=== PATIENT | female | born 1945 | race Asian ===

== ENCOUNTER 2017-10-01 14:37 | Inpatient (IN) | payer MEDICARE, MEDICAID ==
--- NOTE | 2017-10-01 15:00 | ED Physician Chart ---
ED Chief Complaint/HPI - Patient Information Date Seen:: 10/01/17 Time Seen:: 14:45 Chief Complaint:: Abdominal Pain History of Present Illness:: onset x one week of intermittent, diffuse, crampy abd. pain; no report of A/N/V/ D/C, fever, chills, H/As, S/T, neck pain, C/P, SOB, cough, flank pain, or urinary s/s Allergies:: Allergies Allergy/AdvReac Type Severity Reaction Status Date / Time No Known Allergies Allergy Verified 10/01/17 14:56 Historian:: Patient, Family Member Review:: Nurse's Note Reviewed <Francisco Quezada - Last Filed: 10/01/17 17:56> - Patient Information Allergies:: Allergies Allergy/AdvReac Type Severity Reaction Status Date / Time No Known Allergies Allergy Verified 10/01/17 14:56 Vitals:: Vital Signs - 8 hr 10/01/17 10/01/17 10/01/17 14:58 15:00 17:58 Temp 97.6 F 98.0 F 97.6 F HR 85 89 71 RR 19 18 16 BP 124/79 150/83 141/78 O2 Sat % 97 98 96 10/01/17 19:00 Temp 97.3 F HR 86 RR 18 BP 141/72 O2 Sat % 99 <Wilder Leon - Last Filed: 10/01/17 20:05> ED Review of Systems - Review of Systems General/Constitutional: No fever, No chills, No weight loss, No weakness, No diaphoresis, No edema, No loss of appetite Skin: No skin lesions, No rash, No bruising Head: No headache, No light-headedness Eyes: No loss of vision, No pain, No diplopia ENT: No earache, No nasal drainage, No sore throat, No tinnitus Neck: No neck pain, No swelling, No thyromegaly, No stiffness, No mass noted Cardio Vascular: No chest pain, No palpitations, No PND, No orthopnea, No edema Pulmonary: No SOB, No cough, No sputum, No wheezing GI: No nausea, No vomiting, No diarrhea, Pain, No melena, No hematochezia, No constipation, No hematemesis G/U: No dysuria, No frequency, No hematuria Musculoskeletal: No bone or joint pain, No back pain, No muscle pain Endocrine: Polyuria, No polyuria Psychiatric: No prior psych history, No depression, No anxiety, No suicidal ideation, No homicidal ideation, No auditory hallucination, No visual hallucination Hematopoietic: No bruising, No lymphadenopathy Allergic/Immuno: No urticaria, No angioedema Neurological: No syncope, No focal symptoms, No weakness, No paresthesia, No headache, No seizure, No dizziness, No confusion, No vertigo <PilarFrancisco - Last Filed: 10/01/17 17:56> ED Past Medical History - Past Medical History Obtainable: Yes Past Medical History: HTN, DM, Dyslipidemia Family History: Diabetes Melitus, HTN Social History: Non Smoker, No Alcohol, No Drug Use, Single Surgical History: None Psychiatricy History: None Medication: Reviewed <PilarFrancisco - Filed: 10/01/17 17:56> ED Physical Exam - Physical Examination General/Constitutional: Awake, Well-developed, well-nourished, Alert, No distress, GCS 15, Non-toxic appearing, Ambulatory Head: Atraumatic Eyes: Lids, conjuctiva normal, PERRL, EOMI Skin: Nl inspection, No rash, No skin lesions, No ecchymosis, Well hydrated, No lymphadenopathy ENMT: External ears, nose nl, TM canals nl, Nasal exam nl, Lips, teeth, gums nl , Oropharynx nl, Tonsils nl Neck: Nontender, Full ROM w/o pain, No JVD, No nuchal rigidity, No bruit, No mass, No stridor Respiratory: Nl effort/Exclusion, Clear to Auscultation, No Wheeze/Rhonchi/Rales Cardio Vascular: RRR, No murmur, gallop, rubs, NL S1 S2, Carotid/Femoral/Distal pulses equal bilaterally GI: No tenderness/rebounding/guarding, No organomegaly, No hernia, Normal BS's, Nondistended, No mass/bruits, No McBurney tenderness : No CVA tenderness Extremities: No tenderness or effusion, Full ROM, normal strength in all extremities, No edema, Normal digits & nails Neuro/Psych: Alert/oriented, DTR's symmetric, Normal sensory exam, Normal motor strength, Judgement/insight normal, Mood normal, Normal gait, No focal deficits Misc: Normal back, No paraspinal tenderness <Francisco Quezada - Last Filed: 10/01/17 17:56> ED Labs/Radiology/EKG Results - Lab Results Comments:: Na+: 128; Glucose: 470; - Radiology Results Comments:: NAD - EKG Interpretations EKG Time:: 15:35 Rate & Rhythm: 74; NSR Comments:: RBBB; non-specific st-t changes <YingmyraGlenna wuil - Last Filed: 10/01/17 17:56> - Lab Results Results: Laboratory Tests 10/01/17 10/01/17 10/01/17 15:12 15:12 15:12 WBC 6.9 RBC 4.67 Hgb 14.2 Hct 41.6 MCV 88.9 MCH 30.3 MCHC Differential 34.1 RDW 11.6 Plt Count 200 MPV 10.0 Neutrophils (Manual) 54 Lymphocytes 33 Monocytes 10 Eosinophils 3 Platelet Estimate ADEQUATE PT 11.0 INR 1.06 Sodium 128 L Potassium 4.0 Chloride 97 L Carbon Dioxide 24.8 Anion Gap 10.2 BUN 19 Creatinine 0.9 Est GFR ( Amer) TNP Est GFR (Non-Af Amer) TNP BUN/Creatinine Ratio 21.1 Glucose 470 H* POC Glucose Hemoglobin A1c % Calcium 9.3 Total Bilirubin 0.4 AST 17 ALT 12 Alkaline Phosphatase 68 Creatine Kinase 46 Troponin I B-Natriuretic Peptide Total Protein 7.0 Albumin 3.7 Globulin 3.3 Albumin/Globulin Ratio 1.1 Triglycerides 1375 H Cholesterol 490 H LDL Cholesterol Direct 64 L HDL Cholesterol 29 Amylase Lipase Urine Source Urine Color Urine Clarity Urine pH Ur Specific [place] Urine Protein Urine Glucose (UA) Urine Ketones Urine Blood Urine Nitrate Urine Bilirubin Urine Urobilinogen Ur Leukocyte Esterase Urine RBC Urine WBC Ur Epithelial Cells Urine Bacteria 10/01/17 10/01/17 10/01/17 15:12 15:12 15:12 WBC RBC Hgb Hct MCV MCH MCHC Differential RDW Plt Count MPV Neutrophils (Manual) Lymphocytes Monocytes Eosinophils Platelet Estimate PT INR Sodium Potassium Chloride Carbon Dioxide Anion Gap BUN Creatinine Est GFR ( Amer) Est GFR (Non-Af Amer) BUN/Creatinine Ratio Glucose POC Glucose Hemoglobin A1c % Calcium Total Bilirubin AST ALT Alkaline Phosphatase Creatine Kinase Troponin I 0.01 B-Natriuretic Peptide 59.3 Total Protein Albumin Globulin Albumin/Globulin Ratio Triglycerides Cholesterol LDL Cholesterol Direct HDL Cholesterol Amylase 24 L Lipase 49 Urine Source Urine Color Urine Clarity Urine pH Ur Specific [place] Urine Protein Urine Glucose (UA) Urine Ketones Urine Blood Urine Nitrate Urine Bilirubin Urine Urobilinogen Ur Leukocyte Esterase Urine RBC Urine WBC Ur Epithelial Cells Urine Bacteria 10/01/17 10/01/17 10/01/17 16:51 18:00 19:23 WBC RBC Hgb Hct MCV MCH MCHC Differential RDW Plt Count MPV Neutrophils (Manual) Lymphocytes Monocytes Eosinophils Platelet Estimate PT INR Sodium Potassium Chloride Carbon Dioxide Anion Gap BUN Creatinine Est GFR ( Amer) Est GFR (Non-Af Amer) BUN/Creatinine Ratio Glucose POC Glucose 299 H Hemoglobin A1c % 12.0 H Calcium Total Bilirubin AST ALT Alkaline Phosphatase Creatine Kinase Troponin I B-Natriuretic Peptide Total Protein Albumin Globulin Albumin/Globulin Ratio Triglycerides Cholesterol LDL Cholesterol Direct HDL Cholesterol Amylase Lipase Urine Source CLEAN C Urine Color PALE YELLOW Urine Clarity CLEAR Urine pH 5.5 Ur Specific [place] 1.010 Urine Protein NEGATIVE Urine Glucose (UA) >=1000 H Urine Ketones NEGATIVE Urine Blood NEGATIVE Urine Nitrate NEGATIVE Urine Bilirubin NEGATIVE Urine Urobilinogen 0.2 Ur Leukocyte Esterase NEGATIVE Urine RBC NONE SEEN Urine WBC NONE SEEN Ur Epithelial Cells NONE SEEN Urine Bacteria NONE SEEN <Wilder Leon - Last Filed: 10/01/17 20:05> ED Septic Shock - . Is Septic Shock (SBP<90, OR Lactate>4 mmol\L) present?: No <Francisco Quezada - Last Filed: 10/01/17 17:56> - <6hrs of presentation: Vital Signs: Vital Signs - 8 hr 10/01/17 10/01/17 10/01/17 14:58 15:00 17:58 Temp 97.6 F 98.0 F 97.6 F HR 85 89 71 RR 19 18 16 BP 124/79 150/83 141/78 O2 Sat % 97 98 96 10/01/17 19:00 Temp 97.3 F HR 86 RR 18 BP 141/72 O2 Sat % 99 <Wilder Leon - Last Filed: 10/01/17 20:05> ED Reassessment (Disposition) - Reassessment Reassessment Condition:: Improved - Diagnosis Diagnosis:: Dx: Hyperglycemia; Hyponatremia; Dehydration; DM <Francisco Quezada - Last Filed: 10/01/17 17:56> - Patient Disposition Discharge/Transfer:: Acute Care w/in this hosp Admitted to:: Telemetry Admitting Medical Physician:: Gustavo Cam Condition at Disposition:: Stable <Wilder Leon - Last Filed: 10/01/17 20:05> ED Discharge Plan <Francisco Quezada - Last Filed: 10/01/17 17:56> <Wilder Leon - Last Filed: 10/01/17 20:05> - Patient Disposition Admit/Discharge/Transfer: Acute Care w/in this hosp Condition at Disposition: Guarded
[2017-10-01] MEDS ORDERED: Sodium Chloride 0.9% 1,000 ML IV ONE (15:01)
[2017-10-01 15:28] LABS: HEMATOCRIT 41.6 % (41.0-60); HEMOGLOBIN 14.2 gm/dL (12-16); MEAN CELL VOLUME 88.9 fl (81-100); MEAN CORPUSCULAR HEMOGLOBIN 30.3 pg (27.0-31.0); MEAN CORPUSCULAR HGB CONC 34.1 pg (28.0-36.0); PLATELET COUNT 200 Th/cmm (150-400); RED BLOOD COUNT 4.67 Mil/cmm (3.80-5.20); RED CELL DISTRIBUTION WIDTH 11.6 % (11.5-20.0); WHITE BLOOD COUNT 6.9 Th/cmm (4.8-10.8)
--- NOTE | 2017-10-01 15:33 | Diagnostic Imaging Report ---
CT scan abdomen and pelvis without intravenous contrast HISTORY: Pain Total DLP equals 504 CTDI equals 10.7 Axial sections were obtained from the xiphoid process down to the pubic symphysis. Limited sections through the lower chest demonstrate a somewhat generous heart size. The liver exhibits a bulbous contour. No focal lesions. The spleen appears normal. No focal amenities seen within the pancreas. The kidneys appear normal bilaterally. Atherosclerotic calcination seen within the aorta. The exam of the pelvis demonstrates preservation of normal fat planes. No abnormal soft tissue masses or abnormal fluid collections. No bowel dilatation. No abnormalities seen in the region of the appendix. IMPRESSION: 1. No acute abnormalities
--- NOTE | 2017-10-01 15:35 | Diagnostic Imaging Report ---
Portable chest x-ray HISTORY: Pain The heart size appears generous. Atherosclerotic calcification seen within the aorta. Allowing for a poor inspiration, no acute focal pulmonary processes are seen. Multiple surgical clips noted in the left axillary area. IMPRESSION: 1. No acute focal pulmonary processes 2. Generous heart size with atherosclerotic vascular changes
[2017-10-01 15:56] LABS: INR 1.06 (0.5-1.4)
[2017-10-01 16:19] LABS: ALB/GLOB RATIO 1.1 (1.0-1.8); ALKALINE PHOSPHATASE 68 U/L (34-104); ANION GAP 10.2 (7.0-16.0); BILIRUBIN,TOTAL 0.4 mg/dL (0.3-1.0); BUN - UREA NITROGEN 19 mg/dL (7-25); BUN/CREATININE RATIO 21.1; CALCIUM SERUM 9.3 mg/dL (8.6-10.3); CARBON DIOXIDE 24.8 mEq/L (21.0-31.0); CHLORIDE 97 mEq/L (98-107); CHOLESTEROL 490 mg/dL (<200); CREATININE - SERUM 0.9 mg/dL (0.6-1.2); SGOT 17 U/L (13-39); SGPT/ALT 12 U/L (7-52); SODIUM SERUM 128 mEq/L (136-145)
[2017-10-01 16:26] LABS: EOSINOPHIL 3 % (0-5); NEUTROPHILS 54 % (40-80); PLATELET ESTIMATE ADEQUATE (NORMAL)
[2017-10-01 16:33] LABS: AMYLASE SERUM 24 U/L (29-103); LIPASE 49 U/L (11-82)
[2017-10-01 16:38] LABS: GLUCOSE 470 mg/dL (70-105)
[2017-10-01 16:39] LABS: TRIGLYCERIDES 1375 mg/dL (<150)
[2017-10-01] MEDS ORDERED: INSULIN HUMAN REGULAR 100 UNITS/ML UNIT SUBQ ONE (17:55)
[2017-10-01] MEDS ORDERED: INSULIN HUMAN REGULAR 100 UNITS/ML UNIT ONE (18:07)
[2017-10-01 18:48] LABS: URINE BILIRUBIN NEGATIVE (NEGATIVE); URINE BLOOD NEGATIVE (NEGATIVE); URINE GLUCOSE (UA) >=1000 mg/dL (NEGATIVE); URINE KETONE NEGATIVE (NEGATIVE); URINE PH 5.5 (4.6 - 8.0); URINE PROTEIN NEGATIVE (NEGATIVE); URINE UROBILINOGEN 0.2 E.U./dL (0.2 - 1.0)
[2017-10-01 18:54] LABS: URINE COLOR PALE YELLOW; URINE EPITHELIAL CELLS NONE SEEN /lpf (FEW); URINE RBC NONE SEEN /hpf (0-5); URINE WBC NONE SEEN /hpf (0-5)
[2017-10-01 18:55] LABS: URINE BACTERIA NONE SEEN /hpf (NONE SEEN)
[2017-10-01] MEDS: Sodium Chloride 0.9% 1,000 ML IV SCH (19:47)
[2017-10-01 23:02] VITALS: BP 129/88
[2017-10-01] MEDS ORDERED: Morphine Sulfate 2 mg/mL 1mL Syr IVP PRN (23:23)
[2017-10-01] MEDS ORDERED: Ipratropium Neb 0.5 mg/2.5 mL UD IH PRN (23:23)
[2017-10-01] MEDS ORDERED: Albuterol Nebulizer 2.5mg/3mL HHN PRN (23:23)
[2017-10-01] MEDS ORDERED: Maalox 30 mL Cup PO PRN (23:23)
[2017-10-02] MEDS: INSULIN ASPART, RECOMBINANT 100 UNITS/ML SUBQ SCH ×4 (06:58→22:06)
--- NOTE | 2017-10-02 07:58 | Diagnostic Imaging Report ---
Exam: CT examination of lumbar sacral spine. HISTORY: Diffuse back pain. Total DLP equals 899 CTDI equals 43.1 Findings: Multiple contiguous thin section of the lumbosacral spine were obtained without administration of contrast material. Coronal sagittal reconstruction technique was utilized. The study demonstrates vertebral bodies of normal height. There is evidence for degenerative images with spurring and bridging. There is no evidence of spinal stenosis. No prevertebral soft tissue swelling is noted. Degenerative osteopenic changes facet joint adenopathy appreciated. There is no evidence of spondylolysis or spondylolisthesis abdominal aorta is calcified. IMPRESSION: 1. Degenerative changes of the lumbar sacral spine 2. MRI examination might be helpful.
[2017-10-02] MEDS ORDERED: ERGOCALCIFEROL 50000 UNIT PO SCH (08:00)
--- NOTE | 2017-10-02 08:01 | Diagnostic Imaging Report ---
Exam: CT examination of thoracic spine. HISTORY: Diffuse pain. Total DLP equals 1120 CTDI equals 38.2 Findings: Multiple contiguous thin section of the thoracic spine were obtained in the plane with coronal sagittal reconstruction technique. No prior studies available comparison. The study demonstrates a vertebral bodies of normal height. There is evidence for degenerative changes the lower thoracic spine with anterior bridging and spurring. There is no evidence of spinal stenosis. There is no evidence of spondylolysis or spondylolisthesis. No prevertebral soft tissue swelling is noted. IMPRESSION: Degenerative changes of the thoracic spine with anterior spurring and bridging. If clinically indicated MRI examination might be helpful.
--- NOTE | 2017-10-02 08:03 | Diagnostic Imaging Report ---
Exam: CT examination cervical spine. HISTORY: Diffuse pain. Total DLP equals 454 CTDI equals weight 2.6 Findings: Multiple contiguous thin section of the cervical spine were obtained from the base of skull to thoracic outlet without the administration of contrast material no prior studies available for comparison. The study demonstrates vertebral bodies of normal height with preserved intervertebral disc spaces. Mild vacuum disc phenomenon is noted at C6-C7 vertebral bodies. Posterior elements are intact. There is no evidence of spinal stenosis. No prevertebral soft tissue swelling is noted. Mild posterior facet uropathy appreciated in lower cervical spine. IMPRESSION: Essentially unremarkable examination cervical spine. If clinically indicated MRI examination might be helpful.
[2017-10-02] MEDS ORDERED: Fenofibrate, Micronized 134 mg Cap PO SCH (09:00)
[2017-10-02] MEDS: Levothyroxine 0.05 Mg Tab PO SCH (09:14)
[2017-10-02] MEDS: Pantoprazole 40 mg EC Tab PO SCH ×2 (09:14→16:59)
[2017-10-02] MEDS: Lidocaine 5% Patch TD SCH (10:26)
[2017-10-02] MEDS: Fenofibrate, Micronized 134 mg Cap PO SCH (10:28)
[2017-10-02] MEDS ORDERED: Influenza Vaccine 0.5 mL Syr IM ONE (10:57)
[2017-10-02] MEDS ORDERED: Pneumococcal Vaccine 0.5 mL Vial IM ONE (10:57)
--- NOTE | 2017-10-02 11:04 | History and Physical ---
History of Present Illness - HPI Chief Complaint: severe back pain and abdominal pain HPI: This is a 72 year old maur[place] female who has a 1 week hsitory of severe back pain and abdominal pain. According to at bedside patient has been having this pain for a year already but it has been intermittent, she fell last year and after the fall patient has been having back pains. She also complains of abdominal pain, denies any diarrhea or any vomiting. Per at bedside, patient unable to walk well due to the pain. Vital Signs: Last Vital Signs Temp 97.4 F 10/02/17 08:40 Pulse 69 10/02/17 09:14 Resp 17 10/02/17 08:40 BP 174/85 10/02/17 09:14 Pulse Ox 97 10/02/17 08:40 Past Medical History Cardiovascular: Report: HTN, Hyperlipidemia Pulmonary: Report: No Pertinent Hx Psych: Report: No Pertinent Hx Musculoskeletal: Report: Low Back Pain Other History: DIABETES - Past Surgical History Past Surgical History: Other (left breast mastectomy left fore arm surgery salpingoophorectomy) Family Medical History - Family Member Mother History Unknown: Yes Social History Smoke: No Alcohol: None Drugs: None Lives: With Family - Medications Home Medications: Home Medication Medication Instructions Recorded Type Benazepril HCl 20 mg PO DAILY 10/01/17 History Donepezil Hcl [Aricept] 5 mg PO DAILY 10/01/17 History Ergocalciferol (Vitamin D2) 50,000 units PO [facility] 10/01/17 History [Vitamin D2] Fenofibrate 160 mg PO DAILY 10/01/17 History Glipizide 5 mg PO BID 10/01/17 History Levothyroxine [Synthroid] 50 mcg PO DAILY 10/01/17 History Lovastatin 20 mg PO HS 10/01/17 History Metformin HCl [Glucophage] 1,000 mg PO 10/01/17 History - Allergies Allergies/Adverse Reactions: Allergies Allergy/AdvReac Type Severity Reaction Status Date / Time No Known Allergies Allergy Verified 10/01/17 14:56 Review of Systems - Review of Systems Constitutional: Report: Weakness Eyes: Report: No Significant ENT: Report: No Significant Respiratory: Report: No Significant Cardiovascular: Report: No Significant Gastrointestinal: Report: Abdominal Pain Genitourinary: Report: No Significant Musculoskeletal: Report: Back Pain Skin: Report: No Significant Neurological: Report: Weakness Physical Exam - Physical Exam HEENT: Report: Ears Nose Throat within normal limits Neck: Report: Within normal limits Cardiovascular Systems: Report: +s1/s2 noted Respiratory: Report: Breath Sounds are within normal limits Abdomen: Report: Non-tender to palpation Back: Report: Inspection of back is within normal limits. Extremities: Report: Non-tender to palpation. Skin: Report: Color of skin is within normal limits Neuro/Psych: Report: A+Ox3 - Lab Results All Lab Results last 24 hours: Laboratory Results - last 24 hr 10/02/17 05:31 POC Glucose 260 H - Assessment Assessment: Current Active Problems Problem Status Onset RUQ PAIN WITH LUMBAR/THORACIC PAIN Acute HTN DM-2 - Plan Plan: Ortho consult pain mgmt ivf for hydration monitor glucose with sliding scale follow up labs
[2017-10-02] MEDS: Hydrocodone/APAP 5mg/325mg Tab PO PRN ×2 (12:09→22:05)
--- NOTE | 2017-10-02 13:04 | History & Physical ---
ADMIT DATE: 10/02/2017 CHIEF COMPLAINT: Abdominal pain and chronic low back pain. HISTORY OF PRESENT ILLNESS: This is a 72-year-old [place]istanian female who has a 1-week history of abdominal pain associated with low back pain. Per patient's at bedside, the patient has been having this ongoing pain on her lower back for a year already. The patient did not have any recent falls, however, the patient did fall a year ago and the patient started to complaint of right leg pain. The patient did not have any fevers or any diarrhea at home. In the ER, the patient was found to have JOB# [id number]
[2017-10-02] MEDS: Sodium Chloride 0.9% 1,000 ML IV SCH (17:12)
[2017-10-02] MEDS ORDERED: Insulin Detemir 100 units/mL 10mL Vial SUBQ SCH (21:00)
--- NOTE | 2017-10-03 02:35 | Consultation ---
DATE OF CONSULTATION: 10/02/2017 INPATIENT GASTROINTESTINAL PROCEDURE REASON FOR CONSULTATION: Back pain. HISTORY: A 72-year-old female who was originally admitted to the hospital for back pain. The patient was also noted to have abdominal pain by the admitting personnel. By the time I am seeing the patient today she refutes that claim that she has any abdominal pain. She states that her pain is primarily in her back. She is actually eating a full regular lunch meal as I am talking to her and she is without any abdominal pain. Her is at bedside who corroborates the story as well. They both do not know why they think that she has abdominal pain. So for the record, she states she has no abdominal pain. She denies having any nausea or vomiting. She denies having any diarrhea or constipation. She denies melena, hematochezia, hematemesis, or coffee ground emesis. Her political researcher, whom she saw approximately 2 years for a routine colonoscopy, which revealed that she has some polyps. PAST MEDICAL HISTORY: Hypertension and hyperlipidemia. PAST SURGICAL HISTORY: Mastectomy, salpingo-oophorectomy. FAMILY HISTORY: Noncontributory. SOCIAL HISTORY: She denies tobacco, alcohol or IV drug usage. ALLERGIES: None. CURRENT MEDICATIONS: Tylenol, [place], Maalox, Ecotrin, Lotensin, Aricept, Tricor, insulin, Atrovent, Synthroid, metformin, morphine, Zofran, Protonix, Zocor, Ambien. REVIEW OF SYSTEMS: Ten point review of system was performed and pertinent positives was low back pain. All systems were otherwise negative. PHYSICAL EXAMINATION: VITAL SIGNS: Temperature 97.7, breathing 17, pulse of 71, blood pressure is 129/67, satting 98%. GENERAL: In no apparent distress. EYES: Are anicteric. Normal conjunctivae. HEENT: Normocephalic, atraumatic. Moist mucous membranes. NECK: Soft, supple. CHEST: Clear. No effort. CARDIOVASCULAR: Regular rate and rhythm. ABDOMEN: Soft, nontender, nondistended, normal bowel sounds. SKIN: Warm, dry. EXTREMITIES: Reveal no cyanosis. PSYCHOLOGIC: Alert and oriented x 3. LABORATORY DATA: Show white count 6.9, hemoglobin 14.2, platelets of 200, total bilirubin 0.4, AST 17, ALT 12, alkaline phosphatase 68, creatinine 0.9, lipase 49. CT abdomen and pelvis showed no acute abnormalities. IMPRESSION: A 72-year-old female with low back pain. There are no reports of any abdominal pain. The patient refused anything that she had recent abdominal pain; therefore, no GI workup is planned in the absence of any symptoms. Her LFTs and lipase were reviewed and were within normal limits. Her CT abdomen and pelvis with was reviewed and they showed no acute abdominal or pelvic pathology. The case was also discussed with Dr. Cam, the admitting physician. I informed him that the patient is without any abdominal pain. At this time, there is no GI workup that is needed. Should the patient develop any future abdominal pain, however, the GI workup can be done accordingly. PLAN: 1. Consider orthopedic evaluation and other workup necessary for her low back pain. 2. We can see the patient as needed with any abdominal pain which were to develop. In the meantime, we will sign off. 3. Case was also discussed with Dr. Cam as well. Thank you for allowing me to participate. Please call me if any questions. JOB# [id number]
[2017-10-03] MEDS: Sodium Chloride 0.9% 1,000 ML IV SCH (05:51)
[2017-10-03 06:53] LABS: HEMATOCRIT 39.1 % (41.0-60); MEAN CELL VOLUME 89.1 fl (81-100); MEAN CORPUSCULAR HEMOGLOBIN 29.6 pg (27.0-31.0); MEAN CORPUSCULAR HGB CONC 33.2 pg (28.0-36.0); MEAN PLATELET VOLUME 9.7 fl; PLATELET COUNT 180 Th/cmm (150-400); RED BLOOD COUNT 4.39 Mil/cmm (3.80-5.20); RED CELL DISTRIBUTION WIDTH 11.8 % (11.5-20.0)
[2017-10-03 07:00] LABS: ANION GAP 9.7 (7.0-16.0); BUN - UREA NITROGEN 14 mg/dL (7-25); BUN/CREATININE RATIO 17.5; CALCIUM SERUM 8.6 mg/dL (8.6-10.3); CHLORIDE 103 mEq/L (98-107); CREATININE - SERUM 0.8 mg/dL (0.6-1.2); GLUCOSE 183 mg/dL (70-105); POTASSIUM SERUM 3.7 mEq/L (3.5-5.1); SODIUM SERUM 134 mEq/L (136-145)
[2017-10-03 07:01] LABS: WHITE BLOOD COUNT 8.7 Th/cmm (4.8-10.8)
[2017-10-03] MEDS: Hydrocodone/APAP 5mg/325mg Tab PO PRN (07:52)
[2017-10-03] MEDS: INSULIN ASPART, RECOMBINANT 100 UNITS/ML SUBQ SCH ×2 (08:10→12:06)
[2017-10-03 08:13] LABS: NEUTROPHILS 51 % (40-80); TOTAL CELLS COUNTED 100
[2017-10-03] MEDS: Fenofibrate, Micronized 134 mg Cap PO SCH (09:39)
[2017-10-03] MEDS: Lidocaine 5% Patch TD SCH (09:40)
[2017-10-03] MEDS: Levothyroxine 0.05 Mg Tab PO SCH (09:40)
[2017-10-03] MEDS: Pantoprazole 40 mg EC Tab PO SCH (09:42)
--- NOTE | 2017-10-03 09:57 | Internal Medicine Prog Note ---
Internal Medicine Subjective - Subjective Service Date: 10/03/17 Patient seen and examined:: with staff Patient is:: awake Per staff patient has:: tolerating meds Internal Medicine Objective - Results Result Diagrams: 10/03/17 05:45 10/03/17 05:45 Recent Labs: Laboratory Last Values WBC 8.7 Th/cmm (4.8-10.8) D 10/03/17 05:45 RBC 4.39 Mil/cmm (3.80-5.20) 10/03/17 05:45 Hgb 13.0 gm/dL (12-16) 10/03/17 05:45 Hct 39.1 % (41.0-60) L 10/03/17 05:45 MCV 89.1 fl (81-100) 10/03/17 05:45 MCH 29.6 pg (27.0-31.0) 10/03/17 05:45 MCHC Differential 33.2 pg (28.0-36.0) 10/03/17 05:45 RDW 11.8 % (11.5-20.0) 10/03/17 05:45 Plt Count 180 Th/cmm (150-400) 10/03/17 05:45 MPV 9.7 fl 10/03/17 05:45 Neutrophils (Manual) 51 % (40-80) 10/03/17 05:45 Lymphocytes 43 % (20-50) 10/03/17 05:45 Monocytes 6 % (2-10) 10/03/17 05:45 Eosinophils 3 % (0-5) 10/01/17 15:12 Platelet Estimate ADEQUATE (NORMAL) 10/01/17 15:12 PT 11.0 SECONDS (9.5-11.5) 10/01/17 15:12 INR 1.06 (0.5-1.4) 10/01/17 15:12 Sodium 134 mEq/L (136-145) L 10/03/17 05:45 Potassium 3.7 mEq/L (3.5-5.1) 10/03/17 05:45 Chloride 103 mEq/L (98-107) 10/03/17 05:45 Carbon Dioxide 25.0 mEq/L (21.0-31.0) 10/03/17 05:45 Anion Gap 9.7 (7.0-16.0) 10/03/17 05:45 BUN 14 mg/dL (7-25) 10/03/17 05:45 Creatinine 0.8 mg/dL (0.6-1.2) 10/03/17 05:45 Est GFR ( Amer) TNP 10/03/17 05:45 Est GFR (Non-Af Amer) TNP 10/03/17 05:45 BUN/Creatinine Ratio 17.5 10/03/17 05:45 Glucose 183 mg/dL (70-105) H 10/03/17 05:45 POC Glucose 192 MG/DL (70 - 105) H 10/03/17 06:35 Hemoglobin A1c % 12.0 % (4.0-6.0) H 10/01/17 16:51 Calcium 8.6 mg/dL (8.6-10.3) 10/03/17 05:45 Total Bilirubin 0.4 mg/dL (0.3-1.0) 10/01/17 15:12 AST 17 U/L (13-39) 10/01/17 15:12 ALT 12 U/L (7-52) 10/01/17 15:12 Alkaline Phosphatase 68 U/L (34-104) 10/01/17 15:12 Creatine Kinase 46 U/L (30-223) 10/01/17 15:12 Troponin I 0.01 ng/mL (0.01-0.05) 10/01/17 15:12 B-Natriuretic Peptide 59.3 pg/mL (5.0-100.0) 10/01/17 15:12 Total Protein 7.0 gm/dL (6.0-8.3) 10/01/17 15:12 Albumin 3.7 gm/dL (3.7-5.3) 10/01/17 15:12 Globulin 3.3 gm/dL 10/01/17 15:12 Albumin/Globulin Ratio 1.1 (1.0-1.8) 10/01/17 15:12 Triglycerides 1375 mg/dL (<150) H 10/01/17 15:12 Cholesterol 490 mg/dL (<200) H 10/01/17 15:12 LDL Cholesterol Direct 64 mg/dL (75-193) L 10/01/17 15:12 HDL Cholesterol 29 mg/dL (23-92) 10/01/17 15:12 Amylase 24 U/L (29-103) L 10/01/17 15:12 Lipase 49 U/L (11-82) 10/01/17 15:12 Urine Source CLEAN C 10/01/17 18:00 Urine Color PALE YELLOW 10/01/17 18:00 Urine Clarity CLEAR (CLEAR) 10/01/17 18:00 Urine pH 5.5 (4.6 - 8.0) 10/01/17 18:00 Ur Specific [place] 1.010 (1.005-1.030) 10/01/17 18:00 Urine Protein NEGATIVE mg/dL (NEGATIVE) 10/01/17 18:00 Urine Glucose (UA) >=1000 mg/dL (NEGATIVE) H 10/01/17 18:00 Urine Ketones NEGATIVE mg/dL (NEGATIVE) 10/01/17 18:00 Urine Blood NEGATIVE (NEGATIVE) 10/01/17 18:00 Urine Nitrate NEGATIVE (NEGATIVE) 10/01/17 18:00 Urine Bilirubin NEGATIVE (NEGATIVE) 10/01/17 18:00 Urine Urobilinogen 0.2 E.U./dL (0.2 - 1.0) 10/01/17 18:00 Ur Leukocyte Esterase NEGATIVE (NEGATIVE) 10/01/17 18:00 Urine RBC NONE SEEN /hpf (0-5) 10/01/17 18:00 Urine WBC NONE SEEN /hpf (0-5) 10/01/17 18:00 Ur Epithelial Cells NONE SEEN /lpf (FEW) 10/01/17 18:00 Urine Bacteria NONE SEEN /hpf (NONE SEEN) 10/01/17 18:00 - Physical Exam Vitals and I&O: Vital Signs Temp 98.6 F 10/03/17 04:00 Pulse 68 10/03/17 09:38 Resp 16 10/03/17 07:45 BP 162/97 10/03/17 09:38 Pulse Ox 97 10/03/17 07:45 Intake & Output 10/02/17 10/03/17 10/03/17 18:59 06:59 18:59 Intake Total 100 1600 150 Output Total 123 Balance 100 1600 27 Weight (lbs) 152 lb 155 lb 12.8 oz 155 lb Intake: Intake, IV Amount 1000 Sodium Chloride 0.9% 1, 1000 000 ml @ 100 mls/hr IV . Q10H [facility] Rx#:[id number] Oral 100 600 150 Output: Urine 120 Stool 3 Other: # Voids 3 2 # Bowel Movements 0 1 Stool Characteristics Soft Soft Active Medications: Current Medications Acetaminophen (Tylenol) 650 mg PO Q4H PRN PRN Reason: Pain Or Fever above 101 Stop: 11/30/17 23:22 Acetaminophen/Hydrocodone Bitart ([place] 5mg/325mg) 1 tab PO Q4H PRN PRN Reason: Pain (Severe) Stop: 11/30/17 23:22 Last Admin: 10/03/17 07:52 Dose: 1 tab Al Hydrox/Mg Hydrox/Simethicone (Maalox) 30 ml PO Q6H PRN PRN Reason: Dyspepsia Stop: 11/30/17 23:22 Albuterol Sulfate (Albuterol 2.5mg/3ml Neb Ud) 2.5 mg HHN Q2HRT PRN PRN Reason: Shortness of Breath or Wheeze Stop: 11/30/17 23:22 Aspirin (Ecotrin) 81 mg PO DAILY [facility] Stop: 12/01/17 08:59 Last Admin: 10/03/17 09:38 Dose: 81 mg Benazepril HCl (Lotensin) 20 mg PO DAILY [facility] Stop: 12/01/17 08:59 Last Admin: 10/03/17 09:38 Dose: 20 mg Donepezil HCl (Aricept) 5 mg PO DAILY [facility] Stop: 12/01/17 08:59 Last Admin: 10/03/17 09:39 Dose: 5 mg Fenofibrate (Tricor) 134 mg PO DAILY [facility] Stop: 12/01/17 08:59 Last Admin: 10/03/17 09:39 Dose: 134 mg Fenofibrate (Tricor) 134 mg PO DAILY [facility] Stop: 12/01/17 08:59 Last Admin: 10/02/17 09:13 Dose: 134 mg Sodium Chloride (Nacl 0.9%) 1,000 mls @ 100 mls/hr IV .Q10H [facility] Stop: 11/30/17 23:29 Last Admin: 10/03/17 05:51 Dose: 100 mls/hr Insulin Aspart (Novolog) 0 units SUBQ ACHS [facility] PRN Reason: Protocol Stop: 12/01/17 07:29 Last Admin: 10/03/17 08:10 Dose: Not Given Insulin Detemir (Levemir Insulin) 20 units SUBQ HS [facility] PRN Reason: Protocol Stop: 12/01/17 20:59 Last Admin: 10/02/17 22:07 Dose: 20 units Ipratropium [place] (Atrovent Neb 0.5mg/2.5ml) 0.5 mg IH Q2HRT PRN PRN Reason: Shortness of Breath or Wheeze Stop: 11/30/17 23:22 Levothyroxine Sodium (Synthroid) 0.05 mg PO DAILY [facility] Stop: 12/01/17 08:59 Last Admin: 10/03/17 09:40 Dose: 0.05 mg Lidocaine (Lidoderm 5% Patch) 1 patch TD DAILY [facility] Stop: 12/01/17 08:59 Last Admin: 10/03/17 09:40 Dose: 1 patch Metformin HCl (Glucophage) 1,000 mg PO BID [facility] Stop: 12/01/17 08:59 Last Admin: 10/03/17 09:42 Dose: 1,000 mg Miscellaneous (Ergocalciferol (Vitamin D2) [Vitamin D2]) 50,000 units PO WMHS [facility] Stop: 12/01/17 07:59 Morphine Sulfate (Morphine) 2 mg IVP Q4H PRN PRN Reason: Pain (Severe) Stop: 11/30/17 23:22 Ondansetron HCl (Zofran) 4 mg IV Q8H PRN PRN Reason: Nausea / Vomiting Stop: 11/30/17 23:22 Pantoprazole Sodium (Protonix) 40 mg PO BID [facility] Stop: 12/01/17 08:59 Last Admin: 10/03/17 09:42 Dose: 40 mg Simvastatin (Zocor) 20 mg PO HS [facility] Stop: 12/01/17 20:59 Last Admin: 10/02/17 22:05 Dose: 20 mg Zolpidem Tartrate (Ambien) 10 mg PO HS PRN PRN Reason: Insomnia Stop: 11/30/17 23:22 General: weak, alert HEENT: NC/AT, PERRLA Neck: Supple Lungs: CTAB Cardiovascular: RRR, Normal S1, Normal S2, without murmur Abdomen: soft, non-tender, non-distended, positive bowel sound Neurological: alert Internal Medicine Assmt/Plan - Assessment Assessment: Current Active Problems Problem Status Onset RUQ PAIN WITH LUMBAR/THORACIC PAIN Acute HTN DM-2 - Plan Plan: await for ortho to see patient pain mgmt ivf for hydration monitor glucose with sliding scale follow up labs Nutritional Asmnt/Malnutr-PDOC - Dietary Evaluation Malnutrition Findings (Please click <Entered> for more info): Nutritional Asmnt/Malnutrition Start: 10/02/17 16: 15 Text: Status: Complete Freq: Document 10/02/17 16:15 JAYME (Rec: 10/02/17 16:26 [id number] [id number]) Nutritional Asmnt/Malnutrition Patient General Information Nutritional Screening High Risk Consult Diagnosis abdominal pain, electrolyte imbalance Pertinent Medical Hx/Surgical Hx HTN, dyslipidemia, DM, left breast mastectomy, left fore arm surgery, salpingoophorectomy, low back pain Subjective Information consult received for diabetic. pt seen sleeping in bed, family at bedside. Family reported pt had decreased appetite for last 3 years, usually eats small portion, had wt loss d/t decreased PO intake. pt did not have much appetite today, consumed 25% of lunch this afternoon. Pt likes oatmeal with milk at breakfast. Current Diet Order/ Nutrition Support CCHO 60gm Pertinent Medications nogolov, levemir, synthroid, glucophage, Nacl IV Pertinent Labs 10/01 Na 128L, Cl 97L, Glu 470H, A1C 12 POC 260-379 since adm Nutritional Hx/Data Height 5 ft 4 in Height (Calculated Centimeters) 162.6 Current Weight (lbs) 152 lb Weight (Calculated Kilograms) 68.9 Weight (Calculated Grams) 81614.0 Usual body Weight (lbs) 147 [place] Body Weight 120 % [place] Body Weight 127 Body Mass Index (BMI) 26.1 Weight Status Overweight GI Symptoms GI Symptoms None Difficult in: None Usual diet at home usually 3 meals a day, small portion size Skin Integrity/Comment: intact Estimated Nutritional Goals BEE in Kcals: Using Current wt Kcals Calculated 1725-1863kcal (25-27kcal/kg) Protein: Using Current wt Protein g/k Protein Calculated 69 Fluid: ml 1543-6941 Nutritional Problem 1. Problem Problem altered nutrition related lab values Etiology hx of DM Signs/Symptoms: Glu 470H, A1C 12, POC 260-379 Malnutrition Alert Protein-Calorie Malnutrition N/A Is there a minimum of two criteria No selected? Query Text:Check all the applicable criteria. A minimum of two criteria are recommended for diagnosis of either severe or non-severe malnutrition. Intervention/Recommendation Comments 1. notified dietetic assistant and updated pt food preference 2. encouraged 3 small meals with snacks b/t meals d/t pt does not have much appetite 3. monitor PO intake, wt weekly, lbas, skin integrity 4. F/U as high risk in 2-3 days, 10/04-10/05 Expected Outcomes/Goals Expected Outcomes/Goals 1. PO intake to meet at least 75% of nutritional intake 2. wt stability, labs to improve, skin to remain intact
--- NOTE | 2017-10-04 01:58 | Consultation ---
DATE OF CONSULTATION: 10/03/2017 ORTHOPEDIC SURGERY CONSULTATION HISTORY OF PRESENT ILLNESS: The patient is a 72-year-old lady admitted to [facility] on 10/01/2017 with complaints of severe back pain and severe abdominal pain. I was called in orthopedic consultation by the admitting physician regarding her back complaints. The patient relates that she was in an accident or had a fall last year (it is little hard to get straight valid information from her and her who was present and assisted during the evaluation). She has self treated the back pain with analgesic patches and cream and local measures as well as oral NSAIDs. The pain is nonradiating. There are no leg symptoms related to the back pain. ADDITIONAL PAST HISTORY: Includes diabetes, hypertension, hyperlipidemia, prior surgeries, salpingo-oophorectomy, left mastectomy. CURRENT MEDICATIONS: Include treatment for diabetes, dyslipidemia and Aricept. PHYSICAL EXAMINATION: GENERAL: The patient was examined in her hospital room at [facility]. She was able to stand and walk quite comfortably and noted analgesic patches on her right posterior lower rib cage area, which she stated that is the location of her back pain episodes. Palpation and percussion along the spine and in the paraspinal muscles reveals no spasm or tenderness. Motion of the back ____ with her age normal, smooth and without complaint. NEUROLOGIC: Straight leg raising test normal. LABORATORY DATA: Review of the lab data shows a serum glucose of 183 and a hemoglobin A1c of 12. IMAGING STUDIES: I reviewed CT images in PACS cervical spine. This appears normal without significant disk narrowing or signs of trauma. Thoracic spine: There is a mild kyphosis and generalized degenerative changes, normal for age. Lumbar spine: There are minor degenerative changes at all levels and some facet arthropathy. ORTHOPEDIC DIAGNOSES: Lumbar degenerative disk disease and facet arthropathy. RECOMMENDATIONS: The patient can continue with outpatient home care for her back pain. It is recommended that other possibilities of back pain be investigated such as aortic aneurysm disease of the pancreas, etc. She should continue with home treatments of moist heat applications, analgesic balm and/or analgesic patches, NSAIDs and oral analgesics. Thank you for this interesting referral. JOB# [id number]
== END 2017-10-03 16:14 | disposition home or self-care (01) | DRG 552 ==
LOC: ER 14:37 → MSI 20:46
PROVIDERS: ADMIT Internal Medicine; ATTEND Internal Medicine
DX: M51.36 Other intervertebral disc degeneration, lumbar region (principal); E11.65 Type 2 diabetes mellitus with hyperglycemia; E87.1 Hypo-osmolality and hyponatremia; E86.0 Dehydration; I10 Essential (primary) hypertension; G89.29 Other chronic pain; E78.5 Hyperlipidemia, unspecified; M12.9 Arthropathy, unspecified; Z83.3 Family history of diabetes mellitus; Z82.49 Family history of ischemic heart disease and other diseases of the circulatory system; Z91.81 History of falling; Z90.12 Acquired absence of left breast and nipple; Z90.722 Acquired absence of ovaries, bilateral; Z79.84 Long term (current) use of oral hypoglycemic drugs
CPT/HCPCS: 36415-UA; 71010-TC; 72125-TC; 72128-TC; 72131-TC; 80048-TC; 80053-TC; 80061-TC; 81001-TC; 82150-TC; 82550-TC; 82948-90; 83036-90; 83690-TC; 83880-TC; 84484-TC; 85007-TC; 85027-TC; 85610-TC; 90779; 93005; 94760; J1815; J7030; J7613; Z7610

== ENCOUNTER 2018-08-14 05:40 | Inpatient (IN) | payer MEDICARE, MEDICAID ==
--- NOTE | 2018-08-14 06:09 | ED Physician Chart ---
ED Chief Complaint/HPI - Patient Information Date Seen:: 08/14/18 Time Seen:: 06:04 Chief Complaint:: fall head trauma History of Present Illness:: 73 yr old female s/p fall to the back of the head with bruising no ko ,pain at the site with two large posterior hematomas no numbness or weakness Allergies:: Allergies Allergy/AdvReac Type Severity Reaction Status Date / Time No Known Allergies Allergy Verified 08/14/18 06:00 ED Review of Systems - Review of Systems General/Constitutional: No fever, No chills Skin: Other (posterior scalp hematomas) Head: Headache Eyes: No loss of vision ENT: No earache Neck: No neck pain Cardio Vascular: No chest pain Pulmonary: No SOB GI: No vomiting G/U: No dysuria Orthodontic Assistant: No vaginal discharge Musculoskeletal: Other (from) Endocrine: No polyuria Psychiatric: Other (dementia) Hematopoietic: Other (two posterior scalp bruising) Neurological: No syncope, No focal symptoms ED Past Medical History - Past Medical History Past Medical History: HTN, DM, Dyslipidemia Surgical History: other (rt mastectomy) Family Medical History - Family Member Mother History Unknown: Yes ED Septic Shock - . Is Septic Shock (SBP<90, OR Lactate>4 mmol\L) present?: No ED Reassessment (Disposition) - Reassessment Reassessment Condition:: Improved - Diagnosis Diagnosis:: fall scalp hematomas htn clonidine 0.[address] head and neck - Aftercare/Follow up Instructions Aftercare/Follow-Up Instructions:: Counseled pt regarding lab results/diagnosis & need follow up - Patient Disposition Discharge/Transfer:: Home Condition at Disposition:: Stable
[2018-08-14] MEDS ORDERED: Morphine Sulfate 2 mg/mL 1mL Syr IVP STA (07:03)
[2018-08-14] MEDS ORDERED: Morphine Sulfate 2 mg/mL 1mL Syr ONE (07:04)
[2018-08-14] MEDS ORDERED: INSULIN HUMAN REGULAR 100 UNITS/ML UNIT SUBQ ONE (07:42)
[2018-08-14] MEDS ORDERED: INSULIN HUMAN REGULAR 100 UNITS/ML UNIT ONE (07:45)
--- NOTE | 2018-08-14 07:45 | Diagnostic Imaging Report ---
Head CT without intravenous contrast Indication: Trauma Comparison: None Technique: Axial images were obtained from the vertex to the skull base without IV contrast. Coronal reconstructions were made. Total DLP: 639, CTDI36 FINDINGS: Images of the brain obtained without contrast demonstrate diffuse soft tissue swelling and hematoma formation along the occipital scalp left greater than right. No evidence of a skull fracture. No evidence of acute intracranial hemorrhage. Mild atrophy is noted. Old lacunar right basal ganglia infarcts are noted. The ventricles and basal cisterns are patent. No mass effect or midline shift. Atherosclerosis is noted. IMPRESSION: Diffuse posterior scalp swelling and hematoma formation left greater than right. No evidence of a skull fracture No evidence of acute intracranial hemorrhage. Old small lacunar right basal ganglia infarct Atherosclerotic vascular disease.
--- NOTE | 2018-08-14 07:49 | Diagnostic Imaging Report ---
CT cervical spine without IV contrast HISTORY: Fall COMPARISON: CT cervical spine on 10/01/2017 Technique: Axial images were obtained from the skull base to the upper thoracic spine without IV contrast. Multiplanar reconstructions were made. Total DLP: 381, CTDI29 FINDINGS: Exam is limited due to motion. There is no evidence of acute fracture or subluxation. Mild degenerative changes are noted with anterior marginal osteophytic spurs. No prevertebral soft tissue swelling. Atlantodental articulation is preserved. There is mild spinal scoliosis. The lung apices are clear. IMPRESSION: No evidence of acute fracture or subluxation Mild degenerative changes. Mild spinal scoliosis.
[2018-08-14 08:16] LABS: HEMATOCRIT 43.2 % (41.0-60); HEMOGLOBIN 14.9 gm/dL (12-16); MEAN CELL VOLUME 87.8 fl (81-100); MEAN CORPUSCULAR HEMOGLOBIN 30.3 pg (27.0-31.0); MEAN CORPUSCULAR HGB CONC 34.6 pg (28.0-36.0); MEAN PLATELET VOLUME 9.5 fl; PLATELET COUNT 209 Th/cmm (150-400); RED BLOOD COUNT 4.92 Mil/cmm (3.80-5.20); RED CELL DISTRIBUTION WIDTH 12.3 % (11.5-20.0); WHITE BLOOD COUNT 11.3 Th/cmm (4.8-10.8)
[2018-08-14 08:20] LABS: INR 0.94 (0.5-1.4); PROTHROMBIN TIME (TEST) 9.8 SECONDS (9.5-11.5)
--- NOTE | 2018-08-14 08:21 | Diagnostic Imaging Report ---
Chest x-ray single view History: Chest pain Comparison: 10/01/2017 The heart size is normal. No focal pulmonary parenchymal processes. No hilar or mediastinal abnormalities. Impression: No acute abnormalities
[2018-08-14 08:27] LABS: ALB/GLOB RATIO 1.2 (1.0-1.8); ALBUMIN 3.7 gm/dL (3.7-5.3); ALKALINE PHOSPHATASE 73 U/L (34-104); ANION GAP 16.2 (7.0-16.0); BILIRUBIN,TOTAL 0.5 mg/dL (0.3-1.0); BUN - UREA NITROGEN 20 mg/dL (7-25); CALCIUM SERUM 9.6 mg/dL (8.6-10.3); CARBON DIOXIDE 21.9 mEq/L (21.0-31.0); CHLORIDE 94 mEq/L (98-107); CHOLESTEROL 533 mg/dL (<200); CREATININE - SERUM 0.9 mg/dL (0.6-1.2); GLUCOSE 395 mg/dL (70-105); HDL -HIGH DENSITY LIPOPROTEIN 28 mg/dL (23-92); POTASSIUM SERUM 4.1 mEq/L (3.5-5.1); SGOT 13 U/L (13-39); SGPT/ALT 10 U/L (7-52); SODIUM SERUM 128 mEq/L (136-145); TOTAL PROTEIN,SERUM 6.9 gm/dL (6.0-8.3); TRIGLYCERIDES 1305 mg/dL (<150)
[2018-08-14 08:43] LABS: CREATININE KINASE 58 U/L (30-223)
[2018-08-14] MEDS ORDERED: Sodium Chloride 0.9% 1,000 ML IV ONE (09:15)
[2018-08-14 09:41] LABS: AMYLASE SERUM 22 U/L (29-103); LIPASE 55 U/L (11-82)
[2018-08-14 11:58] VITALS: BP 114/38
--- NOTE | 2018-08-14 13:07 | Internal Medicine Prog Note ---
Internal Medicine Subjective - Subjective Service Date: 08/14/18 ([facility] [id number]) Internal Medicine Objective - Results Result Diagrams: 08/14/18 08:00 08/14/18 08:00 Recent Labs: Laboratory Last Values WBC 11.3 Th/cmm (4.8-10.8) H 08/14/18 08:00 RBC 4.92 Mil/cmm (3.80-5.20) 08/14/18 08:00 Hgb 14.9 gm/dL (12-16) 08/14/18 08:00 Hct 43.2 % (41.0-60) 08/14/18 08:00 MCV 87.8 fl (81-100) 08/14/18 08:00 MCH 30.3 pg (27.0-31.0) 08/14/18 08:00 MCHC Differential 34.6 pg (28.0-36.0) 08/14/18 08:00 RDW 12.3 % (11.5-20.0) 08/14/18 08:00 Plt Count 209 Th/cmm (150-400) 08/14/18 08:00 MPV 9.5 fl 08/14/18 08:00 PT 9.8 SECONDS (9.5-11.5) 08/14/18 08:00 INR 0.94 (0.5-1.4) 08/14/18 08:00 Sodium 128 mEq/L (136-145) L 08/14/18 08:00 Potassium 4.1 mEq/L (3.5-5.1) 08/14/18 08:00 Chloride 94 mEq/L (98-107) L 08/14/18 08:00 Carbon Dioxide 21.9 mEq/L (21.0-31.0) 08/14/18 08:00 Anion Gap 16.2 (7.0-16.0) H 08/14/18 08:00 BUN 20 mg/dL (7-25) 08/14/18 08:00 Creatinine 0.9 mg/dL (0.6-1.2) 08/14/18 08:00 Est GFR ( Amer) TNP 08/14/18 08:00 Est GFR (Non-Af Amer) TNP 08/14/18 08:00 BUN/Creatinine Ratio 22.2 08/14/18 08:00 Glucose 395 mg/dL (70-105) H 08/14/18 08:00 POC Glucose 275 MG/DL (70 - 105) H 08/14/18 10:32 Calcium 9.6 mg/dL (8.6-10.3) 08/14/18 08:00 Total Bilirubin 0.5 mg/dL (0.3-1.0) 08/14/18 08:00 AST 13 U/L (13-39) 08/14/18 08:00 ALT 10 U/L (7-52) 08/14/18 08:00 Alkaline Phosphatase 73 U/L (34-104) 08/14/18 08:00 Creatine Kinase 58 U/L (30-223) 08/14/18 08:00 Troponin I 0.01 ng/mL (0.01-0.05) 08/14/18 08:00 B-Natriuretic Peptide 20.9 pg/mL (5.0-100.0) 08/14/18 08:00 Total Protein 6.9 gm/dL (6.0-8.3) 08/14/18 08:00 Albumin 3.7 gm/dL (3.7-5.3) 08/14/18 08:00 Globulin 3.2 gm/dL 08/14/18 08:00 Albumin/Globulin Ratio 1.2 (1.0-1.8) 08/14/18 08:00 Triglycerides 1305 mg/dL (<150) H 08/14/18 08:00 Cholesterol 533 mg/dL (<200) H 08/14/18 08:00 LDL Cholesterol Direct 60 mg/dL (75-193) L 08/14/18 08:00 HDL Cholesterol 28 mg/dL (23-92) 08/14/18 08:00 Amylase 22 U/L (29-103) L 08/14/18 08:00 Lipase 55 U/L (11-82) 08/14/18 08:00 Serum Ketones NEGATIVE (NEGATIVE) 08/14/18 08:00 - Physical Exam Vitals and I&O: Vital Signs Temp 97.3 F 08/14/18 11:26 Pulse 62 08/14/18 11:26 Resp 18 08/14/18 12:46 BP 114/38 08/14/18 11:58 Pulse Ox 95 08/14/18 11:26 Intake & Output 08/13/18 08/14/18 08/14/18 18:59 06:59 18:59 Weight (lbs) 157 lb 136 lb 8 oz Other: Weight Source Patient stated Bedscale Active Medications: Current Medications Acetaminophen (Tylenol) 650 mg PO Q4HR PRN PRN Reason: Pain Or Fever above 101 Stop: 10/13/18 12:36 Benazepril HCl (Lotensin) mg PO DAILY [facility] Stop: 10/14/18 08:59 Donepezil HCl (Aricept) mg PO DAILY [facility] Stop: 10/14/18 08:59 Glipizide (Glucotrol) 5 mg PO BID [facility] Stop: 10/13/18 16:59 Sodium Chloride (Nacl 0.9%) 1,000 mls @ 100 mls/hr IV .Q10H [facility] Stop: 08/14/18 19:14 Last Admin: 08/14/18 09:23 Dose: 100 mls/hr Insulin Aspart (Novolog Insulin Sliding Scale) 0 units SUBQ ACHS [facility]; Protocol Stop: 10/13/18 16:29 Levothyroxine Sodium (Synthroid) 0.05 mg PO DAILY [facility] Stop: 10/14/18 08:59 Miscellaneous (Ergocalciferol (Vitamin D2) [Vitamin D2]) 50,000 units PO WMHS [facility] Stop: 10/13/18 16:59 Miscellaneous (Fenofibrate [Fenofibrate]) 160 mg PO DAILY [facility] Stop: 10/14/18 08:59 Miscellaneous (Lovastatin [Lovastatin]) 20 mg PO HS [facility] Stop: 10/13/18 20:59 Miscellaneous (Metformin Hcl [Glucophage]) 1,000 mg PO DAILY [facility] Stop: 10/14/18 08:59 Ondansetron HCl (Zofran) 4 mg IV Q8H PRN PRN Reason: Nausea / Vomiting Stop: 10/13/18 12:36 Pneumococcal Polyvalent Vaccine (Pneumovax) 0.5 ml IM .ONCE ONE Stop: 08/15/18 09:01
[2018-08-14 13:23] LABS: BAND NEUTROPHILE 2 % (0-10); EOSINOPHIL 1 % (0-5); LYMPHOCYTE 20 % (20-50); MONOCYTE 5 % (2-10); NEUTROPHILS 72 % (40-80)
[2018-08-14] MEDS: Sodium Chloride 0.9% 1,000 ML IV SCH ×2 (13:46→19:45)
--- NOTE | 2018-08-14 16:07 | History & Physical ---
ADMIT DATE: 08/14/2018 CHIEF COMPLAINT: Status post fall. HISTORY OF PRESENT ILLNESS: This is a 73-year-old [place] female admitted to the med/surg unit due to status post fall. According to at bedside, the patient was walking to the restroom. The patient slipped and fell and hit her head. Prior to falling, the patient states that she felt dizzy. She denies any dizziness at this time. Per as well, the patient has been noncompliant with her medications at home. PAST MEDICAL HISTORY: Hypertension, diabetes and dyslipidemia. PAST SURGICAL HISTORY: Right mastectomy. FAMILY HISTORY: Noncontributory. SOCIAL HISTORY: The patient resides at home with her . Denies any alcohol, illicit drug usage, any tobacco smoking. REVIEW OF SYSTEMS: GENERAL: Denies any fevers, any chills. Complains of weakness. CARDIOVASCULAR: Denies chest pain. RESPIRATORY: Denies shortness of breath. GASTROINTESTINAL: Denies nausea, vomiting, abdominal pain. GENITOURINARY: Denies increased frequency or dysuria. NEUROLOGIC: No headache, seizure or syncope. All other systems are reviewed and negative. PHYSICAL EXAMINATION: GENERAL: Elderly female, awake, alert, no apparent distress. VITAL SIGNS: Temperature 97.3, heart rate 62, blood pressure 114/38 and O2 95%. HEENT: Head; normocephalic and atraumatic. NECK: Supple. No mass. LUNGS: Clear bilaterally. HEART: Regular rate and rhythm. No murmurs, no gallops. ABDOMEN: Soft, nontender and nondistended. SKIN: The patient's scalp is noted with ecchymosis LABORATORY DATA: WBC 11.3, H and H 14.9 and 43.2 and platelets of 209. Sodium 128, potassium 4.1, chloride 94, BUN 20, creatinine 0.9, triglycerides 1305, cholesterol 533 and amylase of 22. DIAGNOSTICS: The patient had a chest x-ray done, negative for any abnormalities. CT of the head, impression is a diffuse posterior scalp swelling and hematoma formation, left greater than right. No evidence of a skull fracture, no evidence of acute intracranial hemorrhage. Old small lacunar right basal ganglia infarct, atherosclerotic vascular disease. CT of the cervical spine was also done and impression is no evidence of acute fracture or subluxation, mild degenerative changes, mild spinal scoliosis. ASSESSMENT: Uncontrolled diabetes, multiple falls, noncompliant, hypertension, dyslipidemia and hyponatremia. PLAN: Will monitor the patient's blood sugar before meals and at bedtime, was aggressive with high-dose sliding scale. Will get Physical Therapy evaluation. Also, dietary consultation for diet management. We will get patient's baseline hemoglobin A1c and collect urine for urinalysis. Will get followup labs for tomorrow morning. Fall precautions will be initiated. We will continue to monitor this patient. JOB# [id number]
[2018-08-14] MEDS: INSULIN ASPART SLIDING SCALE 100 UNITS/ML UNIT SUBQ SCH ×2 (16:27→20:20)
[2018-08-14 17:21] LABS: URINE SOURCE MIDSTREAM
[2018-08-14 17:24] LABS: URINE BILIRUBIN NEGATIVE (NEGATIVE); URINE BLOOD NEGATIVE (NEGATIVE); URINE GLUCOSE (UA) >=1000 mg/dL (NEGATIVE); URINE KETONE NEGATIVE (NEGATIVE); URINE LEUKOCYTE ESTERASE NEGATIVE (NEGATIVE); URINE MICROSCOPIC INDICATED? YES; URINE NITRATE NEGATIVE (NEGATIVE); URINE PH 5.5 (4.6 - 8.0); URINE PROTEIN NEGATIVE (NEGATIVE); URINE UROBILINOGEN 0.2 E.U./dL (0.2 - 1.0)
[2018-08-14 17:25] LABS: URINE CLARITY CLEAR (CLEAR); URINE COLOR YELLOW
[2018-08-14 17:28] LABS: URINE EPITHELIAL CELLS MODERATE /lpf (FEW); URINE RBC 0-2 /hpf (0-5)
[2018-08-14 17:29] LABS: URINE BACTERIA 1+ /hpf (NONE SEEN)
[2018-08-15 06:10] LABS: HEMATOCRIT 38.3 % (41.0-60); HEMOGLOBIN 13.4 gm/dL (12-16); MEAN CELL VOLUME 85.8 fl (81-100); MEAN CORPUSCULAR HEMOGLOBIN 29.9 pg (27.0-31.0); MEAN CORPUSCULAR HGB CONC 34.9 pg (28.0-36.0); MEAN PLATELET VOLUME 9.3 fl; PLATELET COUNT 192 Th/cmm (150-400); RED BLOOD COUNT 4.46 Mil/cmm (3.80-5.20); RED CELL DISTRIBUTION WIDTH 12.2 % (11.5-20.0)
[2018-08-15 06:28] LABS: WHITE BLOOD COUNT 8.6 Th/cmm (4.8-10.8)
[2018-08-15] MEDS: INSULIN ASPART SLIDING SCALE 100 UNITS/ML UNIT SUBQ SCH ×2 (06:30→12:00)
[2018-08-15 06:31] LABS: ANION GAP 12.1 (7.0-16.0); BUN - UREA NITROGEN 19 mg/dL (7-25); CALCIUM SERUM 8.8 mg/dL (8.6-10.3); CARBON DIOXIDE 21.6 mEq/L (21.0-31.0); CHLORIDE 102 mEq/L (98-107); CREATININE - SERUM 0.7 mg/dL (0.6-1.2); POTASSIUM SERUM 3.7 mEq/L (3.5-5.1); SODIUM SERUM 132 mEq/L (136-145)
[2018-08-15 06:38] LABS: GLUCOSE 268 mg/dL (70-105)
[2018-08-15 06:53] LABS: EOSINOPHIL 4 % (0-5); LYMPHOCYTE 41 % (20-50); MONOCYTE 5 % (2-10); NEUTROPHILS 50 % (40-80); PLATELET ESTIMATE ADEQUATE (NORMAL)
--- NOTE | 2018-08-15 08:42 | Diagnostic Imaging Report ---
Carotid ultrasound HISTORY: Dizziness COMPARISON: None Technique: Longitudinal and transverse sonographic sector images of the carotid arteries were obtained with doppler analysis. FINDINGS: Exam of the right side demonstrates intimal thickening and mild joint atherosclerotic vascular disease. Exam of the left side demonstrates intimal thickening and mild generalized atherosclerotic vascular disease. There is decreased velocity of the left vertebral artery at 19.2 cm/second. No evidence of elevated velocities. The velocity ratios are within normal limits. Antegrade vertebral artery flow is demonstrated bilaterally. IMPRESSION: Mild generalized atherosclerotic vascular disease. No evidence of hemodynamically significant stenosis. Decreased velocity of the left vertebral artery with 19.2 cm/second. Clinical correlation recommended. If necessary further testing may be performed.
[2018-08-15] MEDS ORDERED: Pneumococcal Vaccine 0.5 mL Vial IM ONE (09:00)
[2018-08-15] MEDS ORDERED: Levothyroxine 0.05 Mg Tab PO SCH (09:00)
[2018-08-15] MEDS ORDERED: Fenofibrate, Micronized 134 mg Cap PO SCH (09:00)
--- NOTE | 2018-08-15 13:26 | Internal Medicine Prog Note ---
Internal Medicine Subjective - Subjective Service Date: 08/15/18 ([facility] [id number]) Internal Medicine Objective - Results Result Diagrams: 08/15/18 05:35 08/15/18 05:35 Recent Labs: Laboratory Last Values WBC 8.6 Th/cmm (4.8-10.8) D 08/15/18 05:35 RBC 4.46 Mil/cmm (3.80-5.20) 08/15/18 05:35 Hgb 13.4 gm/dL (12-16) 08/15/18 05:35 Hct 38.3 % (41.0-60) L 08/15/18 05:35 MCV 85.8 fl (81-100) 08/15/18 05:35 MCH 29.9 pg (27.0-31.0) 08/15/18 05:35 MCHC Differential 34.9 pg (28.0-36.0) 08/15/18 05:35 RDW 12.2 % (11.5-20.0) 08/15/18 05:35 Plt Count 192 Th/cmm (150-400) 08/15/18 05:35 MPV 9.3 fl 08/15/18 05:35 Add Manual Diff YES 08/15/18 05:35 Band Neutrophils % 2 % (0-10) 08/14/18 08:00 Neutrophils (Manual) 50 % (40-80) 08/15/18 05:35 Lymphocytes 41 % (20-50) 08/15/18 05:35 Monocytes 5 % (2-10) 08/15/18 05:35 Eosinophils 4 % (0-5) 08/15/18 05:35 Platelet Estimate ADEQUATE (NORMAL) 08/15/18 05:35 PT 9.8 SECONDS (9.5-11.5) 08/14/18 08:00 INR 0.94 (0.5-1.4) 08/14/18 08:00 Sodium 132 mEq/L (136-145) L 08/15/18 05:35 Potassium 3.7 mEq/L (3.5-5.1) 08/15/18 05:35 Chloride 102 mEq/L (98-107) 08/15/18 05:35 Carbon Dioxide 21.6 mEq/L (21.0-31.0) 08/15/18 05:35 Anion Gap 12.1 (7.0-16.0) 08/15/18 05:35 BUN 19 mg/dL (7-25) 08/15/18 05:35 Creatinine 0.7 mg/dL (0.6-1.2) 08/15/18 05:35 Est GFR ( Amer) TNP 08/15/18 05:35 Est GFR (Non-Af Amer) TNP 08/15/18 05:35 BUN/Creatinine Ratio 27.1 08/15/18 05:35 Glucose 268 mg/dL (70-105) H D 08/15/18 05:35 POC Glucose 233 MG/DL (70 - 105) H 08/15/18 11:29 Calcium 8.8 mg/dL (8.6-10.3) 08/15/18 05:35 Total Bilirubin 0.5 mg/dL (0.3-1.0) 08/14/18 08:00 AST 13 U/L (13-39) 08/14/18 08:00 ALT 10 U/L (7-52) 08/14/18 08:00 Alkaline Phosphatase 73 U/L (34-104) 08/14/18 08:00 Creatine Kinase 58 U/L (30-223) 08/14/18 08:00 Troponin I 0.01 ng/mL (0.01-0.05) 08/14/18 08:00 B-Natriuretic Peptide 20.9 pg/mL (5.0-100.0) 08/14/18 08:00 Total Protein 6.9 gm/dL (6.0-8.3) 08/14/18 08:00 Albumin 3.7 gm/dL (3.7-5.3) 08/14/18 08:00 Globulin 3.2 gm/dL 08/14/18 08:00 Albumin/Globulin Ratio 1.2 (1.0-1.8) 08/14/18 08:00 Triglycerides 1305 mg/dL (<150) H 08/14/18 08:00 Cholesterol 533 mg/dL (<200) H 08/14/18 08:00 LDL Cholesterol Direct 60 mg/dL (75-193) L 08/14/18 08:00 HDL Cholesterol 28 mg/dL (23-92) 08/14/18 08:00 Amylase 22 U/L (29-103) L 08/14/18 08:00 Lipase 55 U/L (11-82) 08/14/18 08:00 Urine Source MIDSTREAM 08/14/18 17:00 Urine Color YELLOW 08/14/18 17:00 Urine Clarity CLEAR (CLEAR) 08/14/18 17:00 Urine pH 5.5 (4.6 - 8.0) 08/14/18 17:00 Ur Specific [place] 1.020 (1.005-1.030) 08/14/18 17:00 Urine Protein NEGATIVE mg/dL (NEGATIVE) 08/14/18 17:00 Urine Glucose (UA) >=1000 mg/dL (NEGATIVE) H 08/14/18 17:00 Urine Ketones NEGATIVE mg/dL (NEGATIVE) 08/14/18 17:00 Urine Blood NEGATIVE (NEGATIVE) 08/14/18 17:00 Urine Nitrate NEGATIVE (NEGATIVE) 08/14/18 17:00 Urine Bilirubin NEGATIVE (NEGATIVE) 08/14/18 17:00 Urine Urobilinogen 0.2 E.U./dL (0.2 - 1.0) 08/14/18 17:00 Ur Leukocyte Esterase NEGATIVE (NEGATIVE) 08/14/18 17:00 Urine RBC 0-2 /hpf (0-5) 08/14/18 17:00 Urine WBC 2-5 /hpf (0-5) 08/14/18 17:00 Ur Epithelial Cells MODERATE /lpf (FEW) 08/14/18 17:00 Urine Bacteria 1+ /hpf (NONE SEEN) H 08/14/18 17:00 Serum Ketones NEGATIVE (NEGATIVE) 08/14/18 08:00 - Physical Exam Vitals and I&O: Vital Signs Temp 96.7 F 08/15/18 13:13 Pulse 68 08/15/18 13:13 Resp 18 08/15/18 13:13 BP 141/62 08/15/18 13:13 Pulse Ox 98 08/15/18 11:37 Intake & Output 08/14/18 08/15/18 08/15/18 18:59 06:59 18:59 Intake Total 300 1009 240 Balance 300 1009 240 Weight (lbs) 136 lb 150 lb 9.6 oz 150 lb 9.6 oz Intake: Intake, IV Amount 359 Sodium Chloride 0.9% 1, 359 000 ml @ 60 mls/hr IV . [id number] [facility] Rx#:[id number] Oral 300 650 240 Other: # Voids 2 3 1 # Bowel Movements 0 Weight Source Bedscale Bedscale Bedscale Active Medications: Current Medications Acetaminophen (Tylenol) 650 mg PO Q4HR PRN PRN Reason: Pain Or Fever above 101 Stop: 10/13/18 12:36 Last Admin: 08/15/18 01:40 Dose: 650 mg Benazepril HCl (Lotensin) 10 mg PO DAILY [facility] Stop: 10/14/18 08:59 Last Admin: 08/15/18 08:18 Dose: 10 mg Donepezil HCl (Aricept) 10 mg PO DAILY [facility] Stop: 10/14/18 08:59 Last Admin: 08/15/18 08:16 Dose: 10 mg Ergocalciferol (Vitamin D2) 50,000 iu PO QTHUR [facility] Stop: 10/14/18 08:59 Last Admin: 08/15/18 08:17 Dose: 50,000 iu Fenofibrate (Tricor) 134 mg PO DAILY [facility] Stop: 10/14/18 08:59 Last Admin: 08/15/18 08:16 Dose: 134 mg Glipizide (Glucotrol) 5 mg PO BID [facility] Stop: 10/13/18 16:59 Last Admin: 08/15/18 08:38 Dose: 5 mg Sodium Chloride (Nacl 0.9%) 1,000 mls @ 60 mls/hr IV .[id number] [facility] Stop: 10/13/18 13:14 Last Admin: 08/14/18 19:45 Dose: 60 mls/hr Insulin Aspart (Novolog Insulin Sliding Scale) 0 units SUBQ ACHS [facility]; Protocol Stop: 10/13/18 16:29 Last Admin: 08/15/18 12:00 Dose: 6 units Levothyroxine Sodium (Synthroid) 0.05 mg PO DAILY [facility] Stop: 10/14/18 08:59 Last Admin: 08/15/18 08:17 Dose: 0.05 mg Metformin HCl (Glucophage) 1,000 mg PO DAILY [facility] Stop: 10/14/18 08:59 Last Admin: 08/15/18 08:17 Dose: 1,000 mg Ondansetron HCl (Zofran) 4 mg IV Q8H PRN PRN Reason: Nausea / Vomiting Stop: 10/13/18 12:36 Simvastatin (Zocor) 20 mg PO HS [facility]IE Stop: 10/13/18 20:59 Last Admin: 08/14/18 20:20 Dose: 20 mg Nutritional Asmnt/Malnutr-PDOC - Dietary Evaluation Malnutrition Findings (Please click <Entered> for more info): Nutritional Asmnt/Malnutrition Start: 08/14/18 13: 12 Text: Status: Active Freq: Protocol: Document 08/14/18 13:12 LETI (Rec: 08/14/18 13:16 LETI IQBAL) Nutritional Asmnt/Malnutrition Patient General Information Nutritional Screening High Risk Consult Diagnosis uncontrolled sugar and multiple falls Pertinent Medical Hx/Surgical Hx HTN, DM, dyslipidemia, right mastectomy Subjective Information Pt transferred from ER to med- surg and was in room w/ at time of visit. Pt provided food preferences. stated pt does not follow special diet at home, but has low appetite and low po intake d/t medications. Current Diet Order/ Nutrition Support CCHO 60g Pertinent Medications glucotrol, novolog, synthroid, NaCl 0.9%, zofran, glucophage , novolog, tricor, vit D2 Pertinent Labs 08/14: Na 128, Cl 94, glucose 395, POC 384-410, triglycerides 1305, cholesterol 533 Nutritional Hx/Data Height 5 ft 4 in Height (Calculated Centimeters) 162.6 Current Weight (lbs) 136 lb Weight (Calculated Kilograms) 61.7 Weight (Calculated Grams) 93400.6 [place] Body Weight 120 lb Body Mass Index (BMI) 23.3 Weight Status Approriate GI Symptoms GI Symptoms None Last BM none noted Difficult in: None Usual diet at home reported no special diet at home Skin Integrity/Comment: intact; redness on posterior head Estimated Nutritional Goals BEE in Kcals: Using Current wt Calories/Kcals/Kg 25-30 Kcals Calculated 0794-9092 Protein: Using Current wt Protein g/k-1.2 Protein Calculated 62-74 g Fluid: ml 5213-6485 (1 ml/kcal) Nutritional Problem 1. Problem Problem altered nutrition related lab values Etiology DM and dyslipidemia Signs/Symptoms: glucose 395, POC 384-410, triglycerides 1305, cholesterol 533 Malnutrition Alert Is there a minimum of two criteria No selected? Query Text:Check all the applicable criteria. A minimum of two criteria are recommended for diagnosis of either severe or non-severe malnutrition. Malnutrition Related to Morbid Obesity Malnutrition related to morbid obesity No Intervention/Recommendation Comments 1. Recommend to add cardiac diet to current [facility] 60 g diet as ordered. 2. Monitor PO intake, wt, labs and skin integrity 3. Consider adding oral supplement if PO intake <50% 4. F/U as high risk in 2-3 days, 08/16-08/17 Expected Outcomes/Goals Expected Outcomes/Goals 1. PO intake to meet at least 75% of nutritional needs. 2. Wt stability, skin to remain intact, and labs to improve towards normal limits Reviewed by Lynn Martins RD
--- NOTE | 2018-08-15 16:43 | Discharge Summary ---
DATE OF DISCHARGE: 08/15/2018 DISCHARGE DIAGNOSES: Uncontrolled diabetes, which has been controlled; multiple falls; noncompliance; hypertension; dyslipidemia and hyponatremia. HISTORY OF PRESENT ILLNESS: This is a 73-year-old [place] female admitted to the med/surg unit due to status post fall. According to at bedside, the patient was walking to the restroom. The patient slipped and fell and hit her head. Prior to falling, the patient states that she felt dizzy. She denied any dizziness during admission. PHYSICAL EXAMINATION: GENERAL: The patient is well-developed, well-nourished, no apparent distress. VITAL SIGNS: Stable. HEENT: Head normocephalic and atraumatic. NECK: Supple. No mass. LUNGS: Clear bilaterally. HEART: Regular rate and rhythm. ABDOMEN: Soft and nontender. HOSPITAL COURSE: During the hospital stay, the patient was admitted to the med/surg unit. The patient had a CT of the head negative for any intracranial hemorrhage. CT of the cervical spine was also done. No evidence of acute fracture or subluxation. The patient was kept on high dose sliding scale. Accu-Chek a.c. and at bedtime was being monitored. The patient was educated on importance of complying with medications and also checking blood glucose level. Dietary consultation was done for diet management. The patient also had a physical therapy evaluation done as well. A carotid artery ultrasound was done and impression is mild due to generalized atherosclerotic vascular disease. No evidence of hemodynamically significant stenosis. The patient denied any dizziness during the hospital stay. For this reason, the patient was stable for discharge. CONDITION UPON DISCHARGE: Fair. DISPOSITION: Home. The patient was educated to follow up with PCP in 1 week. The patient understood and verbalized. JOB# [id number]
== END 2018-08-15 14:15 | disposition home or self-care (01) | DRG 640 ==
LOC: ER 05:40 → MSI 09:42
PROVIDERS: ADMIT Internal Medicine; ATTEND Internal Medicine
DX: E87.1 Hypo-osmolality and hyponatremia (principal); E11.00 Type 2 diabetes mellitus with hyperosmolarity without nonketotic hyperglycemic-hyperosmolar coma (NKHHC); E11.65 Type 2 diabetes mellitus with hyperglycemia; S00.03XA Contusion of scalp, initial encounter; I10 Essential (primary) hypertension; E78.5 Hyperlipidemia, unspecified; E86.0 Dehydration; W01.0XXA Fall on same level from slipping, tripping and stumbling without subsequent striking against object, initial encounter; Y93.89 Activity, other specified; Y92.89 Other specified places as the place of occurrence of the external cause; Y99.8 Other external cause status; Z91.14 Patient's other noncompliance with medication regimen; Z90.11 Acquired absence of right breast and nipple
CPT/HCPCS: 36415-UA; 70450-TC; 71045-TC; 72125-TC; 80048-TC; 80053-TC; 80061-TC; 81001-TC; 82010-TC; 82150-TC; 82550-TC; 82948-90; 83036-90; 83690-TC; 83880-TC; 84484-TC; 85007-TC; 85025-TC; 85610-TC; 93005; 93880-TC; 94760; 96374; 97530; J1815; J2270; J7030; X3904; Z7610